=== PATIENT | male | born 1940 | race Caucasian/White ===

== ENCOUNTER 2019-08-14 12:38 | Inpatient (IN) | payer MEDICARE, BC ==
[~2019-08-14] VITALS: Ht 170.2 cm; Wt 76.0 kg
[~2019-08-14 12:38] MED LIST: AMLO1TAB13 PO; ASCO100019 PO; ASPI-515 PO; ATOR20TA PO; ATOR20TA37 PO; CHOL10003 PO; CIPR500T87 PO; FINA5TAB4 PO; FLUT16SP2 NAS; MAGNESIUM PO; MULT-516 PO; [UNRECOGNIZED DRUG - CODE] PO
[2019-08-14] MEDS ORDERED: SODIUM CHLORIDE FLUSH 10ML SYR IVF ONE (13:00)
[2019-08-14] MEDS ORDERED: ALBUTEROL/IPRATROPIUM 2.5MG/0.5MG, 3 ML NPPB ONE (13:00)
[2019-08-14] MEDS ORDERED: ALBUTEROL/IPRATROPIUM 2.5MG/0.5MG, 3 ML ONE (13:03)
--- NOTE | 2019-08-14 13:12 | NUR ---
PT BIB EMS FOR SUDDEN ONSET OF RESP DISTRESS. PT REPORTS THAT HE WOKE UP FINE BUT SUDDENLY FELT RESP DISTRESS AND HIS HR ELEVATED AND BP ELEVATED. PT DENEIS ANY RESP HX OTHER THAN SOME LUNG CANCER. PT REPORTS COMPLETING TREATMENT AND HE WAS AT ONCOLOGY OFFICE YESTERDAY FOR REGULAR CHECKUP AND HAD A CLEAN BILL OF HEALTH. PT ON ARRIVAL WAS 77%RA AND BREATHING USING ACCESSORY MUSCLES. PT NOT FEBRILE OR TACHYCARDIC. PT DOES HAVE MODERATE CONGESTION PT PLACED ON OXYGEN MASK FOR SUPPLEMENTAL O2. PIV PLACED AND LABS COLLECTED. AWAITING FURTHER ORDERS.
--- NOTE | 2019-08-14 13:21 | NUR ---
FLU SWAB OBTAINED AND SENT IT. PT TOLERATED WELL. PT'S AOX4. RESPS EVEN AND UNLABORED.
[2019-08-14 13:23] LABS: BASOPHILS # (AUTO) 0.01 x10^3/uL (0-0.1); BASOPHILS % (AUTO) 0 % (0-1); EOSINOPHILS # (AUTO) 0.09 x10^3/uL (0-0.4); EOSINOPHILS % (AUTO) 3 % (1-7); LYMPHOCYTES # (AUTO) 0.52 x10^3/uL (1-3.4); LYMPHOCYTES % (AUTO) 17 % (22-44); MD NO; MEAN CORPUSCULAR HEMOGLOBIN 32.8 pg (27.5-34.5); MEAN CORPUSCULAR HGB CONC 33.7 g/dL (33.2-36.2); MEAN CORPUSCULAR VOLUME 97.4 fL (81-97); MEAN PLATELET VOLUME 7.7 fL (7.4-10.4); MONOCYTES # (AUTO) 0.09 x10^3/uL (0.2-0.8); MONOCYTES % (AUTO) 3 % (2-9); NEUTROPHILS # (AUTO) 2.34 x10^3/uL (1.8-6.8); NEUTROPHILS % (AUTO) 77 % (42-75); PLATELET COUNT 107 x10^3/uL (130-400); RED BLOOD COUNT 3.95 x10^6/uL (4.38-5.82); RED CELL DISTRIBUTION WIDTH 13.4 % (9.4-14.8)
[2019-08-14 13:33] LABS: ALANINE AMINOTRANSFERASE 28 U/L (12-78); ALBUMIN 3.3 g/dL (3.4-5.0); ANION GAP 7 mmol/L (5-15); CALCIUM 9.5 mg/dL (8.5-10.1); CHLORIDE 107 mmol/L (98-107); CREATININE 1.17 mg/dL (0.7-1.3)
[2019-08-14 13:37] LABS: ALKALINE PHOSPHATASE 80 U/L (45-117); BILIRUBIN,TOTAL 0.3 mg/dL (0.2-1.0); TOTAL PROTEIN 7.3 g/dL (6.4-8.2); TROPONIN I < 0.015 ng/mL (0.000-0.045)
[2019-08-14 14:05] LABS: RAPID INFLUENZA A Negative (Negative); RAPID INFLUENZA B Negative (Negative)
[2019-08-14] MEDS ORDERED: CEFTRIAXONE PMX 1GM/50ML 50 ML ONE (14:28)
[2019-08-14] MEDS ORDERED: CEFTRIAXONE PMX 1GM/50ML 50 ML IV ONE (14:30)
[2019-08-14] MEDS ORDERED: AZITHROMYCIN 500 MG in SODIUM CHLORIDE 0.9% 250 ML IV ONE (14:30)
[2019-08-14] MEDS ORDERED: TAMS-11 PO (14:32)
--- NOTE | 2019-08-14 14:37 | NUR ---
ABX INFUSING AT THIS TIME AFTER BLOOD CULTURE X 2. PT TOLERATED WELL.
[2019-08-14] MEDS: methylPREDNISolone SOD SUCC 40 MG/ML IVPush SCH ×2 (15:00→20:06)
[2019-08-14] MEDS: ENOXAPARIN 30 MG/0.3 ML SQ SCH (15:00)
[2019-08-14] MEDS ORDERED: AZITHROMYCIN 500 MG in SODIUM CHLORIDE 0.9% 250 ML IV SCH (15:00)
[2019-08-14] MEDS ORDERED: ONDANSETRON 2MG/ML, 2ML IVPush PRN (15:00)
[2019-08-14] MEDS ORDERED: ACETAMINOPHEN 325 MG TABLET PO PRN (15:00)
[2019-08-14] MEDS ORDERED: CEFTRIAXONE PMX 1GM/50ML 50 ML IV SCH (15:00)
[2019-08-14] MEDS ORDERED: methylPREDNISolone SOD SUCC 40 MG/ML ONE (15:11)
--- NOTE | 2019-08-14 15:24 | NUR ---
PT MEDICATED PER EMAR. PT TOLERATED WELL. 2ND ABX IS INFUSING AT THIS TIME. PT TOLERATED WELL.
--- NOTE | 2019-08-14 15:35 | NUR ---
MEDICATION ORDERED FROM PHARMACY AT THIS TIME.
--- NOTE | 2019-08-14 15:53 | NUR ---
PT AMB TO BR WITH STEADY GAIT.
[2019-08-14] MEDS ORDERED: ALBUTEROL SULFATE 2.5 MG/3 ML NPPB PRN (16:00)
--- NOTE | 2019-08-14 16:41 | NUR ---
PT RESTING IN [facility]. PT'S AOX4. RESPS EVEN AND UNLABORED. ALL MONITORS IN PLACE. CALL LIGHT WITHIN REACH.
--- NOTE | 2019-08-14 17:13 | NUR ---
PT RESTING IN [facility]. PT'S AOX4. RESPS EVEN AND UNLABORED. ALL MONITORS IN PLACE. CALL LIGHT WITHIN REACH.
--- NOTE | 2019-08-14 17:26 | NUR ---
REPORT GIVEN TO RAMESH STEWART. ALL QUESTIONS ANSWERED.
[2019-08-14 18:22] VITALS: BP 157/74
[2019-08-14] MEDS: CHOLECALCIFEROL 1,000 UNIT TABLET PO SCH (20:06)
[2019-08-14] MEDS: ASCORBIC ACID 500 MG TABLET PO SCH (20:07)
[2019-08-14] MEDS ORDERED: ATORVASTATIN 20 MG TABLET PO SCH (21:00)
[2019-08-15 02:02] VITALS: BP 119/67
[2019-08-15] MEDS: ENOXAPARIN 30 MG/0.3 ML SQ SCH (02:41)
[2019-08-15] MEDS: methylPREDNISolone SOD SUCC 40 MG/ML IVPush SCH ×2 (02:41→10:17)
[2019-08-15 05:58] LABS: ANION GAP 5 mmol/L (5-15); CALCIUM 9.3 mg/dL (8.5-10.1); CHLORIDE 107 mmol/L (98-107); CREATININE 1.06 mg/dL (0.7-1.3)
[2019-08-15 06:23] LABS: BASOPHILS % (AUTO) 0 % (0-1); EOSINOPHILS % (AUTO) 0 % (1-7); LYMPHOCYTES # (AUTO) 0.35 x10^3/uL (1-3.4); LYMPHOCYTES % (AUTO) 8 % (22-44); MD NO; MEAN CORPUSCULAR HEMOGLOBIN 32.8 pg (27.5-34.5); MEAN CORPUSCULAR HGB CONC 33.4 g/dL (33.2-36.2); MEAN CORPUSCULAR VOLUME 98.1 fL (81-97); MEAN PLATELET VOLUME 8.1 fL (7.4-10.4); MONOCYTES # (AUTO) 0.08 x10^3/uL (0.2-0.8); MONOCYTES % (AUTO) 2 % (2-9); NEUTROPHILS % (AUTO) 90 % (42-75); PLATELET COUNT 104 x10^3/uL (130-400); RED BLOOD COUNT 3.55 x10^6/uL (4.38-5.82); RED CELL DISTRIBUTION WIDTH 13.7 % (9.4-14.8)
[2019-08-15 07:21] VITALS: BP 123/71
[2019-08-15] MEDS: TAMSULOSIN 0.4 MG CAP.ER.24H PO SCH ×2 (09:00→10:17)
[2019-08-15] MEDS: CHOLECALCIFEROL 1,000 UNIT TABLET PO SCH (10:17)
[2019-08-15] MEDS: ASCORBIC ACID 500 MG TABLET PO SCH (10:17)
[2019-08-15] MEDS ORDERED: AZIT250T PO (10:31)
[2019-08-15] MEDS ORDERED: CEFD300C37 PO (10:31)
== END 2019-08-15 11:20 | disposition home or self-care (01) | DRG 193 ==
LOC: ED 14:20 → EDIP 14:21 → ED 14:27 → 4EST 18:23 → DCLOUNGE 08-15 11:15
PROVIDERS: ADMIT Family Medicine; ATTEND Family Medicine
DX: J18.9 Pneumonia, unspecified organism (principal); J96.01 Acute respiratory failure with hypoxia; J44.0 Chronic obstructive pulmonary disease with (acute) lower respiratory infection; J44.1 Chronic obstructive pulmonary disease with (acute) exacerbation; I10 Essential (primary) hypertension; Z88.8 Allergy status to other drugs, medicaments and biological substances; Z91.018 Allergy to other foods; Z83.3 Family history of diabetes mellitus; Z85.118 Personal history of other malignant neoplasm of bronchus and lung; Z85.51 Personal history of malignant neoplasm of bladder; Z87.891 Personal history of nicotine dependence; Z92.21 Personal history of antineoplastic chemotherapy; Z92.3 Personal history of irradiation
CPT/HCPCS: 36415; 71045; 80048; 80053; 83880; 84484; 85025; 87040; 87400; 93005; 94640; 96374; 96375; G0378; J0456; J0696; J7620; J2920; J7050

== ENCOUNTER 2019-12-08 20:12 | Inpatient (IN) | payer MEDICARE, BC ==
[~2019-12-08] VITALS: Ht 167.6 cm; Wt 73.7 kg
[~2019-12-08 20:12] MED LIST changes: +AZIT250T PO; +CEFD300C37 PO; +TAMS-11 PO
[2019-12-08] MEDS ORDERED: FINA5TAB4 PO (20:45)
[2019-12-08] MEDS ORDERED: ALBUTEROL/IPRATROPIUM 2.5MG/0.5MG, 3 ML ONE (21:28)
[2019-12-08] MEDS ORDERED: ASPIRIN 81 MG TABLET CHEW PO ONE (21:30)
[2019-12-08] MEDS ORDERED: ALBUTEROL/IPRATROPIUM 2.5MG/0.5MG, 3 ML NPPB ONE (21:30)
[2019-12-08] MEDS ORDERED: SODIUM CHLORIDE FLUSH 10ML SYR IVF ONE (21:30)
[2019-12-08] MEDS ORDERED: ASPIRIN 81 MG TABLET CHEW ONE (21:31)
[2019-12-08 21:38] LABS: BASOPHILS # (AUTO) 0.02 x10^3/uL (0-0.1); BASOPHILS % (AUTO) 0 % (0-1); EOSINOPHILS # (AUTO) 0.13 x10^3/uL (0-0.4); EOSINOPHILS % (AUTO) 2 % (1-7); LYMPHOCYTES # (AUTO) 0.29 x10^3/uL (1-3.4); LYMPHOCYTES % (AUTO) 5 % (22-44); MD NO; MEAN CORPUSCULAR HEMOGLOBIN 32.8 pg (27.5-34.5); MEAN CORPUSCULAR HGB CONC 34.4 g/dL (33.2-36.2); MEAN CORPUSCULAR VOLUME 95.4 fL (81-97); MONOCYTES # (AUTO) 0.24 x10^3/uL (0.2-0.8); MONOCYTES % (AUTO) 4 % (2-9); NEUTROPHILS # (AUTO) 4.97 x10^3/uL (1.8-6.8); NEUTROPHILS % (AUTO) 88 % (42-75); PLATELET COUNT 116 x10^3/uL (130-400); RED BLOOD COUNT 4.18 x10^6/uL (4.38-5.82); RED CELL DISTRIBUTION WIDTH 13.5 % (9.4-14.8)
[2019-12-08 21:48] LABS: ALBUMIN 3.2 g/dL (3.4-5.0); ANION GAP 4 mmol/L (5-15); CALCIUM 9.4 mg/dL (8.5-10.1); CHLORIDE 109 mmol/L (98-107)
[2019-12-08 21:53] LABS: ALANINE AMINOTRANSFERASE 28 U/L (12-78); ALKALINE PHOSPHATASE 80 U/L (45-117); BILIRUBIN,TOTAL 0.3 mg/dL (0.2-1.0); CREATININE 1.11 mg/dL (0.7-1.3); TOTAL PROTEIN 7.3 g/dL (6.4-8.2); TROPONIN I < 0.015 ng/mL (0.000-0.045)
--- NOTE | 2019-12-08 21:55 | NUR ---
RESTING ON GURNEY, RESTING IN NO ACUTE DISTRESS, RESPIRATIONS EVEN AND UNLABORED. CALL LIGHT AT REACH, SAFETY FALL PRECAUTIONS IN PLACE.
--- NOTE | 2019-12-08 22:23 | NUR ---
PT TO CT.
--- NOTE | 2019-12-08 22:52 | NUR ---
WATCHING TV, RESTING ON GURNEY, RESPIRATIONS EVEN AND UNLABORED. VSS.
[2019-12-08] MEDS ORDERED: OMNIPAQUE 350 MG/ML, 100ML BOTTLE ONE (23:09)
--- NOTE | 2019-12-09 00:23 | NUR ---
Break RN: pt given snacks and PO fluids per PA. Pt remains on 4L NC. Pt remains alert and interactive. Monitors intact.
[2019-12-09 00:42] LABS: RAPID INFLUENZA A Negative (Negative); RAPID INFLUENZA B Negative (Negative)
--- NOTE | 2019-12-09 02:01 | NUR ---
Report called to Marina STEWART.
--- NOTE | 2019-12-09 02:06 | NUR ---
Hospitalist at bedside.
[2019-12-09] MEDS ORDERED: hydrALAzine 20 MG/ML, 1ML IVPush PRN (02:30)
[2019-12-09] MEDS ORDERED: NITROGLYCERIN 0.4 MG BOTTLE (25 TABS) SL PRN (02:30)
[2019-12-09] MEDS ORDERED: ONDANSETRON 2MG/ML, 2ML IVPush PRN (02:30)
[2019-12-09] MEDS ORDERED: ACETAMINOPHEN 325 MG TABLET PO PRN (02:30)
[2019-12-09 02:45] VITALS: BP 159/75
[2019-12-09 05:25] LABS: CHOLESTEROL, TOTAL 137 mg/dL (140-239); TRIGLYCERIDES 17 mg/dL (50-200); VLDL CHOLESTEROL < 5 mg/dL (0-25)
[2019-12-09] MEDS: ASPIRIN 325 MG TABLET EC PO SCH ×2 (05:25→08:31)
[2019-12-09 05:28] LABS: CHOL/HDL RATIO 1.8; HDL CHOL % 55 % (26-37); HDL CHOLESTEROL (DIRECT) 75 mg/dL (40-60); LDL CHOLESTEROL,CALCULATED 59 mg/dL (54-169); LDL/HDL RATIO 0.8 (0.5-3.0)
[2019-12-09 05:29] LABS: TROPONIN I 0.033 ng/mL (0.000-0.045)
[2019-12-09] MEDS: ENOXAPARIN 40 MG/0.4 ML SQ SCH (08:31)
[2019-12-09 08:32] VITALS: BP 145/70
[2019-12-09 12:12] LABS: TROPONIN I 0.016 ng/mL (0.000-0.045)
[2019-12-09 14:37] VITALS: BP 152/75
[2019-12-09 21:22] VITALS: BP 129/52
[2019-12-09] MEDS ORDERED: ALBU8.5H8 IH (21:29)
[2019-12-09] MEDS ORDERED: ATORVASTATIN 20 MG TABLET PO SCH (21:30)
[2019-12-09] MEDS ORDERED: TAMSULOSIN 0.4 MG CAP.ER.24H PO SCH (21:30)
[2019-12-09] MEDS ORDERED: FINASTERIDE 5 MG TABLET PO SCH (21:30)
[2019-12-10] MEDS ORDERED: PROAIR INH PRN (00:30)
[2019-12-10 02:40] VITALS: BP 112/52
[2019-12-10] MEDS: ASPIRIN 325 MG TABLET EC PO SCH (06:23)
[2019-12-10 06:33] LABS: MEAN CORPUSCULAR HEMOGLOBIN 32.9 pg (27.5-34.5); MEAN CORPUSCULAR HGB CONC 34.3 g/dL (33.2-36.2); MEAN CORPUSCULAR VOLUME 95.9 fL (81-97); MEAN PLATELET VOLUME 7.9 fL (7.4-10.4); PLATELET COUNT 91 x10^3/uL (130-400); RED BLOOD COUNT 3.63 x10^6/uL (4.38-5.82); RED CELL DISTRIBUTION WIDTH 13.5 % (9.4-14.8)
[2019-12-10 06:39] LABS: ANION GAP 6 mmol/L (5-15); CALCIUM 9.4 mg/dL (8.5-10.1); CHLORIDE 110 mmol/L (98-107)
[2019-12-10 06:42] LABS: CREATININE 1.03 mg/dL (0.7-1.3)
[2019-12-10 06:52] LABS: BASOPHILS # (AUTO) 0.02 x10^3/uL (0-0.1); BASOPHILS % (AUTO) 0 % (0-1); EOSINOPHILS # (AUTO) 0.05 x10^3/uL (0-0.4); EOSINOPHILS % (AUTO) 1 % (1-7); LYMPHOCYTES # (AUTO) 0.59 x10^3/uL (1-3.4); LYMPHOCYTES % (AUTO) 11 % (22-44); MD SCAN; MONOCYTES # (AUTO) 0.47 x10^3/uL (0.2-0.8); MONOCYTES % (AUTO) 9 % (2-9); NEUTROPHILS # (AUTO) 4.13 x10^3/uL (1.8-6.8); NEUTROPHILS % (AUTO) 79 % (42-75)
[2019-12-10] MEDS ORDERED: REGADENOSON 0.4 MG/5 ML SYRINGE ONE (07:53)
[2019-12-10 08:00] VITALS: BP 115/65
[2019-12-10] MEDS: ENOXAPARIN 40 MG/0.4 ML SQ SCH (08:03)
[2019-12-10] MEDS ORDERED: ALBUTEROL/IPRATROPIUM 2.5MG/0.5MG, 3 ML HHN SCH (08:30)
[2019-12-10 14:26] VITALS: BP 115/63
== END 2019-12-10 15:26 | disposition left against medical advice (07) | DRG 189 ==
LOC: ED 20:54 → EDIP 12-09 01:13 → ICU 12-09 02:34 → 5SO 12-10 03:36
PROVIDERS: ADMIT Family Medicine; ATTEND Internal Medicine
DX: J96.01 Acute respiratory failure with hypoxia (principal); C34.90 Malignant neoplasm of unspecified part of unspecified bronchus or lung; J44.1 Chronic obstructive pulmonary disease with (acute) exacerbation; D69.6 Thrombocytopenia, unspecified; Z88.8 Allergy status to other drugs, medicaments and biological substances; Z91.018 Allergy to other foods; Z53.29 Procedure and treatment not carried out because of patient's decision for other reasons; E78.5 Hyperlipidemia, unspecified; I10 Essential (primary) hypertension; N40.0 Benign prostatic hyperplasia without lower urinary tract symptoms; Z78.9 Other specified health status; Z82.49 Family history of ischemic heart disease and other diseases of the circulatory system; Z83.3 Family history of diabetes mellitus; Z85.51 Personal history of malignant neoplasm of bladder; Z87.891 Personal history of nicotine dependence; Z92.21 Personal history of antineoplastic chemotherapy; Z92.3 Personal history of irradiation
CPT/HCPCS: 36415; 71045; 71275; 78452; 80048; 80053; 80061; 83880; 84484; 85025; 85379; 87081; 87400; 93005; 93017; G0378; J2785; Q9967; A9502; J7512

== ENCOUNTER → 2020-12-10 | Outpatient (CLI) | payer MEDICARE, BC ==
[~2020-12-10] MED LIST changes: +ALBU8.5H8 IH; -ASPI-515 PO; +ASPI-963 PO; +OMNIPAQUE 350 MG/ML, 100ML BOTTLE ONE
== END | disposition home or self-care (01) ==
LOC: GALN 12-09 09:43 → EDSTATUS 12-09 11:15 → CFH 10:54
PROVIDERS: ATTEND Internal Medicine Hematology & Oncology
DX: C34.11 Malignant neoplasm of upper lobe, right bronchus or lung (principal); C67.9 Malignant neoplasm of bladder, unspecified
CPT/HCPCS: 71260; 74177; Q9967

== ENCOUNTER → 2020-12-24 | Outpatient (CLI) | payer MEDICARE, BC ==
[~2020-12-24] MED LIST changes: -OMNIPAQUE 350 MG/ML, 100ML BOTTLE ONE
== END | disposition home or self-care (01) ==
LOC: CFH 13:34
PROVIDERS: ATTEND Internal Medicine Cardiovascular Disease
DX: I35.8 Other nonrheumatic aortic valve disorders (principal); R01.1 Cardiac murmur, unspecified
CPT/HCPCS: C8929; Q9957

== ENCOUNTER 2021-06-03 11:42 | Outpatient (CLI) | payer MEDICARE, BC ==
[2021-06-03] MEDS ORDERED: OMNIPAQUE 350 MG/ML, 100ML BOTTLE ONE (13:00)
== END 2021-06-03 23:59 | disposition home or self-care (01) ==
LOC: CFH 11:42
PROVIDERS: ATTEND Internal Medicine
DX: C34.11 Malignant neoplasm of upper lobe, right bronchus or lung (principal); C67.9 Malignant neoplasm of bladder, unspecified
CPT/HCPCS: 71260; 74177; Q9967